=== PATIENT | male | born 1950 | race Caucasian/White ===

== ENCOUNTER 2019-02-27 10:18 | Emergency (ER) | payer MEDICAID ==
--- NOTE | 2019-02-27 11:19 | ED Physician Chart ---
ED Chief Complaint/HPI - Patient Information Date Seen:: 02/27/19 Time Seen:: 11:05 Chief Complaint:: G-tube removal History of Present Illness:: Patient was sent here for removal of his G-tube (per the family's request). Patient has reportedly been eating a pureed diet. Allergies:: Allergies Allergy/AdvReac Type Severity Reaction Status Date / Time No Known Allergies Allergy Verified 02/27/19 10:31 Vitals:: Vital Signs - 8 hr 02/27/19 10:38 Temp 97.3 F HR 68 RR 18 BP 145/79 O2 Sat % 97 Historian:: Patient Review:: Transfer documents Reviewed ED Review of Systems - Review of Systems General/Constitutional: No fever, No chills, No weight loss, No weakness, No diaphoresis, No edema, No loss of appetite Skin: No skin lesions, No rash, No bruising Head: No headache, No light-headedness Eyes: No loss of vision, No pain, No diplopia ENT: No earache, No nasal drainage, No sore throat, No tinnitus Neck: No neck pain, No swelling, No thyromegaly, No stiffness, No mass noted Cardio Vascular: No chest pain, No palpitations, No PND, No orthopnea, No edema Pulmonary: No SOB, No cough, No sputum, No wheezing GI: No nausea, No vomiting, No diarrhea, No pain, No melena, No hematochezia, No constipation, No hematemesis G/U: No dysuria, No frequency, No hematuria Musculoskeletal: No bone or joint pain, No back pain, No muscle pain Endocrine: No polyuria, No polydipsia Psychiatric: No prior psych history, No depression, No anxiety, No suicidal ideation Hematopoietic: No bruising, No lymphadenopathy Allergic/Immuno: No urticaria, No angioedema Neurological: Focal symptoms, No paresthesia, No headache, No seizure, No dizziness, No vertigo ED Past Medical History - Past Medical History Past Medical History: HTN, Dyslipidemia (hyperlipidemia; no retardation; status post left middle cerebral artery infarct; dysphagia), Other (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; dysphagia; hyperlipidemia) Family History: Other (unavailable) Social History: Care Facility Surgical History: PEG/GTube Psychiatricy History: Other (mental retardation) Family Medical History - Family Member Father History Unknown: Yes ED Physical Exam - Physical Examination General/Constitutional: Awake, Well-developed, well-nourished Head: Atraumatic Eyes: Lids, conjuctiva normal, PERRL Skin: Nl inspection, No rash ENMT: External ears, nose nl, Lips, teeth, gums nl Neck: No nuchal rigidity Respiratory: Nl effort/Exclusion, Clear to Auscultation Cardio Vascular: RRR, No murmur, gallop, rubs GI: No tenderness/rebounding/guarding, No organomegaly Other GI comments:: G-tube does not have a port to deflate so it will have to be removed in the operating room ED Labs/Radiology/EKG Results - Lab Results Results: Laboratory Results WBC 11.0 Th/cmm (4.8-10.8) H 02/27/19 11:30 RBC 4.97 Mil/cmm (3.80-5.80) 02/27/19 11:30 Hgb 14.8 gm/dL (12-16) 02/27/19 11:30 Hct 44.2 % (41.0-60) 02/27/19 11:30 MCV 88.9 fl (80-99) 02/27/19 11:30 MCH 29.7 pg (27.0-31.0) 02/27/19 11:30 MCHC Differential 33.4 pg (28.0-36.0) 02/27/19 11:30 RDW 12.6 % (11.5-20.0) 02/27/19 11:30 Plt Count 399 Th/cmm (150-400) 02/27/19 11:30 MPV 8.1 fl 02/27/19 11:30 Neutrophils % 66.7 % (40.0-80.0) 02/27/19 11:30 Lymphocytes % 24.1 % (20.0-50.0) 02/27/19 11:30 Monocytes % 7.1 % (2.0-10.0) 02/27/19 11:30 Eosinophils % 1.3 % (0.0-5.0) 02/27/19 11:30 Basophils % 0.8 % (0.0-2.0) 02/27/19 11:30 PT 9.7 SECONDS (9.5-11.5) 02/27/19 11:30 INR 0.93 (0.5-1.4) 02/27/19 11:30 PTT (Actin FS) 23.6 SECONDS (26.0-38.0) L 02/27/19 11:30 Sodium 139 mEq/L (136-145) 02/27/19 11:30 Potassium 3.8 mEq/L (3.5-5.1) 02/27/19 11:30 Chloride 102 mEq/L (98-107) 02/27/19 11:30 Carbon Dioxide 30.1 mEq/L (21.0-31.0) 02/27/19 11:30 Anion Gap 10.7 (7.0-16.0) 02/27/19 11:30 BUN 12 mg/dL (7-25) 02/27/19 11:30 Creatinine 0.7 mg/dL (0.7-1.3) 02/27/19 11:30 Est GFR ( Amer) > 60.0 ml/min (>90) 02/27/19 11:30 Est GFR (Non-Af Amer) > 60.0 ml/min 02/27/19 11:30 BUN/Creatinine Ratio 17.1 02/27/19 11:30 Glucose 113 mg/dL (70-105) H 02/27/19 11:30 Calcium 9.7 mg/dL (8.6-10.3) 02/27/19 11:30 ED Assessment - Assessment General Assessment: Patient's insurance did not authorize admission for G-tube removal. They suggested it should be arranged as an outpatient procedure. I spoke to Dr. Funez. The G-tube cannot be removed in the emergency department because there is no port to deflate. ED Septic Shock - . Is Septic Shock (SBP<90, OR Lactate>4 mmol\L) present?: No - <6hrs of presentation: Vital Signs: Vital Signs - 8 hr 02/27/19 10:38 Temp 97.3 F HR 68 RR 18 BP 145/79 O2 Sat % 97 ED Reassessment (Disposition) - Reassessment Reassessment Condition:: Unchanged - Diagnosis Diagnosis:: G-tube present; status post CVA with dense right-sided paralysis and aphasia; history of mental retardation - Aftercare/Follow up Instructions Aftercare/Follow-Up Instructions:: Refer to Discharge Instructions - Patient Disposition Discharge/Transfer:: Shelter Care - SNF Condition at Disposition:: Stable, Unchanged
[2019-02-27 11:42] LABS: % BASOPHILS 0.8 % (0.0-2.0); % EOSINOPHILS 1.3 % (0.0-5.0); % LYMPHOCYTES 24.1 % (20.0-50.0); % MONOCYTES 7.1 % (2.0-10.0); % NEUTROPHILS 66.7 % (40.0-80.0); BASOPHILE ABSOLUTE 0.1 Th/cumm (0-0.2); EOSINOPHILE ABSOLUTE 0.1 Th/cmm (0.1-0.4); HEMATOCRIT 44.2 % (41.0-60); HEMOGLOBIN 14.8 gm/dL (12-16); LYMPHOCYTE ABSOLUTE 2.7 Th/cmm (1.5-3.0); MEAN CELL VOLUME 88.9 fl (80-99); MEAN CORPUSCULAR HEMOGLOBIN 29.7 pg (27.0-31.0); MEAN CORPUSCULAR HGB CONC 33.4 pg (28.0-36.0); MONOCYTE ABSOLUTE 0.8 Th/cmm (0.3-1.0); NEUTROPHILE ABSOLUTE 7.3 Th/cmm (1.8-8.0); PLATELET COUNT 399 Th/cmm (150-400); RED BLOOD COUNT 4.97 Mil/cmm (3.80-5.80); RED CELL DISTRIBUTION WIDTH 12.6 % (11.5-20.0)
[2019-02-27 11:56] LABS: INR 0.93 (0.5-1.4)
[2019-02-27 11:58] LABS: ANION GAP 10.7 (7.0-16.0); BUN - UREA NITROGEN 12 mg/dL (7-25); CALCIUM SERUM 9.7 mg/dL (8.6-10.3); CARBON DIOXIDE 30.1 mEq/L (21.0-31.0); CHLORIDE 102 mEq/L (98-107); CREATININE - SERUM 0.7 mg/dL (0.7-1.3); GFR AFRICAN-AMERICAN > 60.0 ml/min (>90); GFR NON AFRICAN-AMERICAN > 60.0 ml/min; GLUCOSE 113 mg/dL (70-105); POTASSIUM SERUM 3.8 mEq/L (3.5-5.1); SODIUM SERUM 139 mEq/L (136-145)
== END 2019-02-27 13:22 | disposition home or self-care (01) ==
LOC: ER 10:18
DX: Z43.1 Encounter for attention to gastrostomy (principal); I10 Essential (primary) hypertension; E78.5 Hyperlipidemia, unspecified; Z86.73 Personal history of transient ischemic attack (TIA), and cerebral infarction without residual deficits
CPT/HCPCS: 36415-UA; 80048-TC; 85025-TC; 85610-TC; 85730-TC; Z7502